=== PATIENT | male | born 1960 | race Two or more races ===

== ENCOUNTER 2019-04-15 11:00 | Inpatient (IN) | payer OTHER ==
[~2019-04-15] VITALS: Ht 175.3 cm; Wt 95.3 kg
[2019-04-15] MEDS ORDERED: KOMBIGLYZE XR1 EAC1 PO (12:42)
[2019-04-15] MEDS ORDERED: HYZAAR 100-251 EACH PO (12:42)
[2019-04-15] MEDS ORDERED: ATORVASTATIN CA20 MG PO (12:42)
[2019-04-24] MEDS ORDERED: HYOSCYAMINE0.125 M1 SL (11:18)
[2019-04-24] MEDS ORDERED: IMODIUM A-D2 M2 PO (11:18)
[2019-04-24] MEDS ORDERED: PERCOCET 5-3251 EACH PO (11:19)
== END 2019-04-24 11:51 | disposition home or self-care (01) | DRG 330 ==
LOC: O/R 11:00 → SURG 04-20 06:50 → O/R 04-20 06:50 → SURH 04-20 06:50 → EDBD 04-20 11:00 → SURH 04-20 11:00 → SURG 04-21 10:28
PROVIDERS: ADMIT Surgery
PROC: 0DTP4ZZ Resection of Rectum, Percutaneous Endoscopic Approach (ICD-10-PCS; 2019-04-20)
PROC: 07TB4ZZ Resection of Mesenteric Lymphatic, Percutaneous Endoscopic Approach (ICD-10-PCS; 2019-04-20)
PROC: 0DJD8ZZ Inspection of Lower Intestinal Tract, Via Natural or Artificial Opening Endoscopic (ICD-10-PCS; 2019-04-20)
PROC: 0DQA4ZZ Repair Jejunum, Percutaneous Endoscopic Approach (ICD-10-PCS; principal; 2019-04-20 07:00)
DX: C20 Malignant neoplasm of rectum (principal); K91.72 Accidental puncture and laceration of a digestive system organ or structure during other procedure; I11.9 Hypertensive heart disease without heart failure; E78.00 Pure hypercholesterolemia, unspecified

== ENCOUNTER 2019-08-12 14:00 | Inpatient (IN) | payer OTHER ==
[~2019-08-12] VITALS: Ht 175.3 cm; Wt 88.0 kg
[~2019-08-12 14:00] MED LIST: ATORVASTATIN CA20 MG PO; HYOSCYAMINE0.125 M1 SL; HYZAAR 100-251 EACH PO; IMODIUM A-D2 M2 PO; KOMBIGLYZE XR1 EAC1 PO; PERCOCET 5-3251 EACH PO
[2019-08-12] MEDS ORDERED: ATORVASTATIN CA20 MG PO (14:38)
[2019-08-12] MEDS ORDERED: LOSARTAN-HCTZ1 EAC1 PO (14:38)
[2019-08-21] MEDS ORDERED: QUESTRAN LIGHT210 GM PO (07:54)
[2019-08-21] MEDS ORDERED: INTESTINEX680 M1 PO (07:54)
[2019-08-21] MEDS ORDERED: ULTRACET PO (07:55)
== END 2019-08-21 11:28 | disposition home or self-care (01) | DRG 330 ==
LOC: ADM 14:00 → SURH 08-17 06:08 → O/R 08-17 06:08 → SURH 08-17 07:00 → EDSTATUS 08-17 14:00 → SURH 08-17 14:00 → ADM 08-17 14:00 → SURH 08-21 11:28
PROVIDERS: ADMIT Surgery
PROC: 0DQB4ZZ Repair Ileum, Percutaneous Endoscopic Approach (ICD-10-PCS; principal; 2019-08-17 07:00)
DX: Z43.2 Encounter for attention to ileostomy (principal); C20 Malignant neoplasm of rectum; I11.9 Hypertensive heart disease without heart failure; E11.9 Type 2 diabetes mellitus without complications; Z79.4 Long term (current) use of insulin

== ENCOUNTER 2019-09-01 12:42 | Outpatient (CLI) | payer OTHER ==
[~2019-09-01 12:42] MED LIST changes: +INTESTINEX680 M1 PO; +LOSARTAN-HCTZ1 EAC1 PO; +QUESTRAN LIGHT210 GM PO; +ULTRACET PO
== END 2019-09-01 13:07 | disposition home or self-care (01) ==
LOC: RAD 12:42
DX: C20 Malignant neoplasm of rectum (principal)

== ENCOUNTER 2019-09-02 06:19 | Inpatient (IN) | payer OTHER ==
[~2019-09-02] VITALS: Ht 175.3 cm; Wt 83.0 kg
== END 2019-09-06 14:20 | disposition home or self-care (01) | DRG 390 ==
LOC: ER 06:19 → SEC-K 08:23 → SURH 15:09
PROVIDERS: ADMIT Surgery
PROC: 0D7M8ZZ Dilation of Descending Colon, Via Natural or Artificial Opening Endoscopic (ICD-10-PCS; principal; 2019-09-02)
DX: K56.690 Other partial intestinal obstruction (principal); K63.89 Other specified diseases of intestine; I11.9 Hypertensive heart disease without heart failure; E87.6 Hypokalemia; E11.9 Type 2 diabetes mellitus without complications; Z79.4 Long term (current) use of insulin

== ENCOUNTER 2021-09-27 05:51 | Day surgery (SDC) | payer OTHER ==
[~2021-09-27 05:51] MED LIST changes: +ATORVASTATIN CA10 MG PO; +JANUMET XR 1001 EACH PO
[2021-09-27] MEDS ORDERED: PERCOCET 5-3251 EACH PO (10:31)
[2021-09-27] MEDS ORDERED: NEURONTIN600 M1 PO (10:32)
[2021-09-27] MEDS ORDERED: POLY119PG PO (10:32)
== END 2021-09-27 13:18 | disposition home or self-care (01) ==
LOC: CIR.AMB 05:51
PROVIDERS: ATTEND Surgery
DX: K40.20 Bilateral inguinal hernia, without obstruction or gangrene, not specified as recurrent (principal); I10 Essential (primary) hypertension; E11.9 Type 2 diabetes mellitus without complications; Z91.041 Radiographic dye allergy status

== ENCOUNTER 2022-11-28 08:56 | Inpatient (IN) | payer OTHER ==
[~2022-11-28] VITALS: Ht 175.3 cm; Wt 92.5 kg
[~2022-11-28 08:56] MED LIST changes: +NEURONTIN600 M1 PO; +POLY119PG PO
[2022-12-04] MEDS ORDERED: CIPRO500 MG PO (08:17)
[2022-12-04] MEDS ORDERED: INTESTINEX680 M1 PO (08:18)
[2022-12-04] MEDS ORDERED: METRONIDAZOLE500 MG PO (08:18)
== END 2022-12-04 09:58 | disposition home or self-care (01) | DRG 334 ==
LOC: O/R 12-03 06:24 → SURH 12-03 10:15
PROVIDERS: ADMIT Surgery; ATTEND Surgery
PROC: 0DJD8ZZ Inspection of Lower Intestinal Tract, Via Natural or Artificial Opening Endoscopic (ICD-10-PCS; 2022-12-03)
PROC: 3E0T3BZ Introduction of Anesthetic Agent into Peripheral Nerves and Plexi, Percutaneous Approach (ICD-10-PCS; 2022-12-03)
PROC: 0DBP4ZZ Excision of Rectum, Percutaneous Endoscopic Approach (ICD-10-PCS; principal; 2022-12-03 12:45)
DX: K62.1 Rectal polyp (principal); Z20.822 Contact with and (suspected) exposure to COVID-19
CPT/HCPCS: 0184T; 45300; 64430

== ENCOUNTER 2024-03-03 12:30 | Inpatient (IN) | payer OTHER ==
[~2024-03-03] VITALS: Ht 175.3 cm; Wt 94.3 kg
[~2024-03-03 12:30] MED LIST changes: +CIPRO500 MG PO; +METRONIDAZOLE500 MG PO
[2024-03-03] MEDS ORDERED: ROSUVASTATIN CAL5 MG PO (14:30)
[2024-03-03] MEDS ORDERED: NORVASC5 MG PO (14:31)
[2024-03-03 18:03] LABS: INR 0.99; PROTHROMBIN TIME 10.4 SECONDS (9.0-11.5)
[2024-03-09] MEDS ORDERED: BUPIVACAINE HCL 30 ML VIAL IJ ONE (08:15)
[2024-03-09] MEDS ORDERED: CEFTRIAXONE SODIUM 2,000 MG VIAL IV ONE (08:15)
[2024-03-09] MEDS ORDERED: LIDOCAINE HCL 1%/EPINEPHRINE 20ML VIAL IJ ONE (08:15)
[2024-03-09] MEDS ORDERED: METRONIDAZOLE/SODIUM CHLORIDE 500 MG/100 ML PIGGYBACK IV ONE (08:15)
[2024-03-09] MEDS ORDERED: RINGERS SOLUTION,LACTATED 1,000 ML IV SCH (08:30)
[2024-03-09] MEDS ORDERED: MORPHINE SULFATE 4 MG/ML CARTRIDGE IV PRN (08:30)
[2024-03-09] MEDS ORDERED: ONDANSETRON HCL 2 MG/ML VIAL IV PRN (08:30)
[2024-03-09] MEDS ORDERED: DEXTROSE 50 % IN WATER 0.5 G/ML DISP.SYRIN IV PRN ×2 (08:30→13:45)
[2024-03-09] MEDS ORDERED: OxyCODONE HCL 5 MG TABLET (ROXICODONE) PO PRN (08:30)
[2024-03-09] MEDS ORDERED: SUGAMMADEX SODIUM 200 MG/2 ML VIAL IV ONE (08:45)
[2024-03-09] MEDS ORDERED: METOCLOPRAMIDE HCL 5 MG/ML VIAL IV SCH (09:00)
[2024-03-09] MEDS ORDERED: FAMOTIDINE/PF 20 MG/2 ML VIAL IV PUSH SCH (09:00)
[2024-03-09] MEDS ORDERED: HYOSCYAMINE SULFATE 0.125 MG TAB.SUBL SL SCH (09:00)
[2024-03-09] MEDS ORDERED: GABAPENTIN 300 MG CAPSULE PO SCH (09:00)
[2024-03-09] MEDS ORDERED: LACTOBACILLUS ACIDOPHILUS 1 CAP CAP PO SCH (09:00)
[2024-03-09] MEDS ORDERED: ENALAPRILAT DIHYDRATE 1.25 MG/ML VIAL IV PRN (13:45)
[2024-03-09] MEDS ORDERED: INSULIN LISPRO 1,000 UNIT/10 ML UNITS SUBCUTANEO PRN (13:45)
[2024-03-09] MEDS ORDERED: ACETAMINOPHEN 500 MG GEL..CAP PO SCH (14:00)
[2024-03-09] MEDS ORDERED: AMLODIPINE BESYLATE 2.5 MG TABLET PO SCH (21:00)
[2024-03-10] MEDS ORDERED: TRAM1TAB98 PO (08:30)
[2024-03-10] MEDS ORDERED: INTESTINEX680 M1 PO (08:30)
[2024-03-10] MEDS ORDERED: LOSARTAN/HYDROCHLOROTHIAZIDE 1 UDTAB TABLET PO SCH (09:00)
[2024-03-10] MEDS ORDERED: ENOXAPARIN SODIUM 40 MG/0.4 ML SYRINGE SUBCUTANEO SCH (17:00)
[2024-03-11] MEDS ORDERED: ENOXAPARIN SODIUM 40 MG/0.4 ML SYRINGE SUBCUTANEO SCH (09:00)
== END 2024-03-10 12:20 | disposition home or self-care (01) | DRG 337 ==
LOC: ADM 12:30 → O/R 03-09 05:20 → SURH 03-09 11:00 → EDSTATUS 03-09 12:30 → CIR.AMB 03-09 12:30 → SURH 03-09 12:30
PROVIDERS: ADMIT Surgery; ATTEND Surgery
PROC: 0DNW4ZZ Release Peritoneum, Percutaneous Endoscopic Approach (ICD-10-PCS; 2024-03-09)
PROC: 0WUF4JZ Supplement Abdominal Wall with Synthetic Substitute, Percutaneous Endoscopic Approach (ICD-10-PCS; principal; 2024-03-09 11:00)
DX: K43.0 Incisional hernia with obstruction, without gangrene (principal); Z85.048 Personal history of other malignant neoplasm of rectum, rectosigmoid junction, and anus; D12.8 Benign neoplasm of rectum; Z20.822 Contact with and (suspected) exposure to COVID-19